=== PATIENT | male | born 1965 | race Caucasian/White ===

== ENCOUNTER → 2019-08-21 08:23 | Outpatient (BNVA) | payer MEDICAID, SELFPAY | PROVIDERS: Family Provider Nurse Practitioner Family; PCP Nurse Practitioner Family; Visit Provider Specialist | DX: G35 Multiple sclerosis (principal) | CPT/HCPCS: 36415; 96374; 96375; 96413; 96415; J1200; J2350; J2930; J7050 ==

== ENCOUNTER 2019-09-03 08:16 | Outpatient (CLI) | payer MEDICAID, SELFPAY ==
[2019-09-03] MEDS: acetaminophen 500 mg Tablet 1000 MG PO (09:48)
[2019-09-03] MEDS: diphenhydrAMINE 50 mg/mL SDV 1mL 25 MG IVP (14:51)
== END 2019-09-03 08:17 | disposition home or self-care (01) ==
LOC: NSACUTE 08:17
PROVIDERS: Family Provider Nurse Practitioner Family; PCP Nurse Practitioner Family; Visit Provider Specialist
DX: G35 Multiple sclerosis (principal)
CPT/HCPCS: 96365; 96366; 96374; 96375; J1200; J2350; J2930; J7050

== ENCOUNTER 2020-02-19 08:00 | Outpatient (CLI) | payer MEDICAID, SELFPAY ==
[2020-02-19] MEDS: acetaminophen 500 mg Tablet 1000 MG PO (09:15)
[2020-02-19] MEDS: diphenhydrAMINE 50 mg/mL SDV 1mL 25 MG IVP (09:20)
--- NOTE | 2020-02-19 15:02 | PC.NURSE ---
0930 Ocrevus initiated at 40 ml/hr. 1000 Titrated to 80 ml/hr. 1030 Titrated to 120 mls/hr. 1100 Titrated to 140 mls/hr. 1130 Titrate to 180 mls/hr. 1200 Titrated to 200 mls/hr Max rate. 1245. IV completed. Catheter end intact visually, cobban dressing applied.
== END 2020-02-19 08:01 | disposition home or self-care (01) ==
LOC: NSACUTE 08:01
PROVIDERS: Family Provider Nurse Practitioner Family; PCP Nurse Practitioner Family; Visit Provider Specialist
DX: G35 Multiple sclerosis (principal); M17.0 Bilateral primary osteoarthritis of knee; G81.11 Spastic hemiplegia affecting right dominant side; Z87.891 Personal history of nicotine dependence
CPT/HCPCS: 96365; 96366; 96375; 99214

== ENCOUNTER 2020-08-10 10:37 | Outpatient (CLI) | payer MEDICAID, SELFPAY ==
--- NOTE | 2020-08-10 11:00 | MR_ITS ---
WS: [id number] MRI HEAD WITH CONTRAST TECHNIQUE: Sagittal T1, T2 axial, T2 axial FLAIR, axial susceptibility weighted imaging, axial diffus ion weighted images, and coronal T2 images were obtained. Pre and post-T1 axial and post T1 coronal i mages. ADC and FSPGR images. CLINICAL INFORMATION: see dx COMPARISON: MRI FINDINGS: Prior postoperative changes left parietal craniotomy with left parietal resection cavity. Associated encephalomalacia and gliosis. Moderate chronic supratentorial white matter changes compatible with hi story of demyelinating disease. No enhancing lesions to indicate active disease. The number and distr ibution of lesions is not significantly changed since 2019. Mild T1 hypointense lesion load. Moderate parenchymal volume loss. Mild diffuse thinning of the corpus callosum. Chronic appearing lacunar inf arcts in the celestino and right cerebellum. No evidence of restricted diffusion to suggest acute ischemia. No hemosiderin on susceptibly weighted images. Normal optic chiasm and pituitary infundibulum. Normal cavernous sinuses and Meckel's cave. Normal dural venous sinuses. MR/MR head wo/w con [id number] IMPRESSION: 1. Stable chronic demyelinating plaques with no significant progression since 2019. 2. No enhancing lesions to indicate active disease. 3. Mild T1 hypointense lesion load with mild diffuse thinning of the corpus ca llosum. 4. Moderate parenchymal volume loss. 5. Left parietal craniotomy with resection cavity in the left parietal lobe. S urrounding encephalomalacia and gliosis. 6. Tiny chronic appearing lacunar infarcts in the celestino and right cerebellum.
== END 2020-08-10 10:38 | disposition home or self-care (01) ==
LOC: RADSHAW 10:38
PROVIDERS: PCP Nurse Practitioner Family; Visit Provider Specialist
DX: G35 Multiple sclerosis (principal)
CPT/HCPCS: 70553; A9577

== ENCOUNTER 2020-08-11 08:35 | Outpatient (CLI) | payer MEDICAID, SELFPAY ==
[2020-08-11] MEDS: acetaminophen 500 mg Tablet 1000 MG PO (09:12)
[2020-08-11] MEDS: diphenhydrAMINE 50 mg/mL SDV 1mL 12.5 MG IVP (09:25)
--- NOTE | 2020-08-11 10:00 | PC.NURSE ---
Ocrecus Lot [id number] 03/03/21 Solu Medrol Lot [id number] 04/02/22 Benadryl Lot [id number] 10/01/21
== END 2020-08-11 08:36 | disposition home or self-care (01) ==
LOC: NSACUTE 08:36
PROVIDERS: PCP Nurse Practitioner Family; Visit Provider Specialist
DX: G35 Multiple sclerosis (principal); Z87.891 Personal history of nicotine dependence
CPT/HCPCS: 96365; 96366; 96375; 99214; J1200; J2350; J2930; J7040

== ENCOUNTER → 2020-08-25 10:42 | Outpatient (BNVA) | payer MEDICAID, SELFPAY | PROVIDERS: PCP Nurse Practitioner Family; Visit Provider Nurse Practitioner Family | DX: I10 Essential (primary) hypertension (principal); G35 Multiple sclerosis | CPT/HCPCS: 80053; 80061; 84443; 85025 ==

== ENCOUNTER → 2021-02-03 08:59 | Outpatient (BNVA) | payer MEDICAID, SELFPAY ==
[2021-02-03] MEDS: acetaminophen 500 mg Tablet 1000 MG PO (09:45)
[2021-02-03] MEDS: diphenhydrAMINE 50 mg/mL SDV 1mL 25 MG IVP (10:15)
== END ==
PROVIDERS: PCP Nurse Practitioner Family; Visit Provider Specialist
DX: G35 Multiple sclerosis (principal)
CPT/HCPCS: 96365; 96366; 96375; J1200; J2350; J2930; J7040

== ENCOUNTER 2021-02-03 09:12 | Outpatient (CLI) | payer MEDICAID, SELFPAY | END 2021-02-03 09:13 | disposition home or self-care (01) | LOC: NSACUTE 09:15 | PROVIDERS: PCP Nurse Practitioner Family; Visit Provider Specialist | DX: G35 Multiple sclerosis (principal); Z71.89 Other specified counseling | CPT/HCPCS: 99214 ==

== ENCOUNTER → 2021-05-18 15:25 | Outpatient (BNVA) | payer MEDICAID, SELFPAY | PROVIDERS: PCP Nurse Practitioner Family; Visit Provider Nurse Practitioner Family | DX: I10 Essential (primary) hypertension (principal) | CPT/HCPCS: 80053; 80061; 84443; 85025 ==

== ENCOUNTER 2021-07-27 09:36 | Outpatient (CLI) | payer MEDICAID, SELFPAY ==
[2021-07-27 09:45] VITALS: BP 152/106; PULSE 98; RESP 18; TEMP 36.9; O2SAT 97
[2021-07-27] MEDS: acetaminophen 500 mg Tablet 1000 MG PO (10:14)
[2021-07-27] MEDS: sodium chloride 0.9% 250 ML 75 ML IV (10:16)
[2021-07-27] MEDS: diphenhydrAMINE 50 mg/mL SDV 1mL 25 MG IV (10:17)
[2021-07-27 10:35] VITALS: BP 155/113
[2021-07-27] MEDS: cloNIDine 0.1 mg Tablet 0.3 MG PO (10:35)
[2021-07-27 11:02] VITALS: BP 137/99; PULSE 85; RESP 18; TEMP 37; O2SAT 97
[2021-07-27 11:45] VITALS: BP 106/70; PULSE 76; RESP 18; TEMP 36.3; O2SAT 92
[2021-07-27 13:24] VITALS: BP 116/81; PULSE 79; RESP 18; TEMP 36.3; O2SAT 95
--- NOTE | 2021-07-27 15:43 | PC.NURSE ---
0935 - Patient to infusion suite for Ocrevus infusion. Initial blood pressure readings were elevated at 177/115 in the Left arm at 0950. At 0954 his reading in the Right arm was 155/113. A call was placed to Dr. Wood's office with these readings. I spoke with Fatmata, and she relayed these findings to Dr. Wood. The order for Clonidine, 0.3mg from Dr. Wood was given. I relayed the recommendation from Dr. Wood to the patient, and then administered the Clonidine. dh
== END 2021-07-27 09:37 | disposition home or self-care (01) ==
PROVIDERS: PCP Nurse Practitioner Family; Referring Provider Specialist; Visit Provider Specialist
DX: G35 Multiple sclerosis (principal); Z87.891 Personal history of nicotine dependence
CPT/HCPCS: 96365; 96366; 96375; 99214; J1200; J2350; J2930; J7040; J7050

== ENCOUNTER 2022-01-25 09:52 | Outpatient (CLI) | payer MEDICAID, SELFPAY ==
[2022-01-25 10:14] VITALS: BP 103/71; PULSE 90; RESP 18; TEMP 36.2; O2SAT 93
[2022-01-25] MEDS: sodium chloride 0.9% 250 ML 50 ML IV (10:29)
[2022-01-25] MEDS: acetaminophen 500 mg Tablet 1000 MG PO (10:31)
[2022-01-25] MEDS: diphenhydrAMINE 50 mg/mL SDV 1mL 25 MG IVP (10:32)
[2022-01-25 11:11] VITALS: BP 108/78; PULSE 89; RESP 18; TEMP 36.6; O2SAT 93
[2022-01-25 11:38] VITALS: BP 99/79; PULSE 79; RESP 18; TEMP 36.6; O2SAT 94
[2022-01-25 13:03] VITALS: BP 111/69; PULSE 82; RESP 18; TEMP 36.5; O2SAT 97
== END 2022-01-25 09:53 | disposition home or self-care (01) ==
PROVIDERS: PCP Nurse Practitioner Family; Referring Provider Specialist; Visit Provider Specialist
DX: G43.711 Chronic migraine without aura, intractable, with status migrainosus (principal); I10 Essential (primary) hypertension; G35 Multiple sclerosis
CPT/HCPCS: 96365; 96366; 96375; 99213; 99214; J1200; J2350; J2930; J7040; J7050

== ENCOUNTER 2022-04-01 10:52 | Outpatient (CLI) | payer MEDICAID, SELFPAY ==
--- NOTE | 2022-04-01 11:00 | MR_ITS ---
WS: [id number] MRI BRAIN WITH AND WITHOUT CONTRAST HISTORY: G35 - Multiple sclerosis COMPARISON: 08/10/2020 and 04/15/2019 TECHNIQUE: Multiplanar imaging performed through the brain with MultiHance 19 ml's IV. Diffusion-weighted imaging is normal. Postoperative resection LEFT parietal lobe with adjacent cranio shaq. There is evidence for encephalomalacia and gliosis at the LEFT parietal resection cavity. Chronic supratentorial white matter changes abutting the corpus callosum are reidentified. No obvious progression of disease. Most significant T2 signal abnormality surrounds the occipital horns in the subcortical white matter. Medial LEFT temporal lobe demyelinating lesion reidentified also. None of t hese lesions enhance. Ventricles and extra-axial spaces are normal. Clivus and pituitary gland are normal. Visualized posterior fossa and brainstem are also normal. Postcontrast images are negative for masses or vascular malformations. None of these signal abnormali ties related to demyelination are enhancing. Dural venous sinuses are normal. Paranasal sinuses: Very slight mucoperiosteal thickening LEFT maxillary sinus. Mastoid air cells: Normal. Calvarium and scalp: Normal. MR/MR head wo/w con [id number] IMPRESSION: 1. Stable chronic demyelinating plaques with no progression since 2019. 2. No active demyelination. 3. Mild atrophy and volume loss. 4. Stable LEFT parietal resection site and craniotomy.
--- NOTE | 2022-04-01 11:45 | MR_ITS ---
WS: [id number] MRI CERVICAL SPINE with and without contrast. HISTORY: G35 - Multiple sclerosis COMPARISON: 04/15/2019 Technique: Multiplanar, multisequence pre and postcontrast imaging of the cervical spine. MultiHance 19 mL IV. Straightening of the normal cervical lordosis with slight reversal centered at C4. Disc spaces are na rrowed. Hypertrophic osteophytes throughout the cervical spine with encroachment upon the ventral the venancio sac. No signal abnormality within the cord. There is no edema identified. Postcontrast images are negative for demyelinating lesions within the cervical cord. Craniocervical junction, C1 and C2 relationship, odontoid process and soft tissues are normal. C2-C3: Small hypertrophic osteophytes. No stenosis. C3-C4: Diffuse osteophytic ridging with a LEFT paracentral disc osteophyte complex contacting but not displacing the cervical cord. Very mild central and LEFT foraminal stenosis. No change since the max or study. C4-C5: Diffuse osteophytic ridging and mild facet arthritis. Very mild encroachment upon the ventral thecal sac with mild central and bilateral foraminal narrowing. C5-C6: Diffuse osteophytic ridging with a LEFT paracentral disc osteophyte complex causing mild encro achment on the LEFT lateral thecal sac and LEFT foramen. Mild central and LEFT foraminal stenosis. Mi ld progression of stenosis since the prior study. C6-C7: Mild asymmetric disc bulging and vertebral body osteophytosis. Slightly greater disc osteophyt e proximal LEFT foramen. Mild central and RIGHT foraminal stenosis with moderate LEFT foraminal steno sis. Similar to the prior study. C7-T1: No significant stenosis. Paraspinal soft tissue are normal. MR/MR cervical spine wo/w [id number] IMPRESSION: 1. No demyelinating lesions or enhancement within the cervical cord. No cord a trophy. 2. Multilevel moderate spondylitic changes in the cervical spine. Only minimal progression since 04/15/2019. 3. Mild central and bilateral foraminal stenosis at C4-5. 4. LEFT paracentral disc osteophyte complex at C5-6. Causing mild encroachment upon the LEFT lateral thecal sac and foraminal narrowing. 5. Moderate LEFT foraminal stenosis at C6-7 due to disc and osteophyte disease . Mild central and RIGHT foraminal stenosis at C6-7.
--- NOTE | 2022-04-01 13:00 | MR_ITS ---
WS: [id number] MRI THORACIC SPINE with and without contrast. HISTORY: G35 - Multiple sclerosis COMPARISON: 04/12/2019 TECHNIQUE: Multiplanar sequences are performed in sagittal and axial planes. Post contrast imaging, M ultiHance 19 mL IV. Normal posterior thoracic alignment. No marrow edema in the thoracic spine. Marrow edema noted along the inferior endplate of L1. No areas of abnormal enhancement. No signal abnormality within the cord to suggest demyelination. No active demyelinating lesions or enhancement. Very slight anterior wedgin g of T6 is similar to the prior examination. Central stenosis or cord compression. There is a very small central disc protrusion at T10-11. Otherw ise mild facet joint arthritis. Paraspinal soft tissues are negative. MR/MR thoracic spine wo/w [id number] IMPRESSION: 1. No demyelinating lesions or enhancement within the thoracic cord. No cord a trophy. 2. No significant central or foraminal stenosis.
[2022-04-01] MEDS: gadobenate dimeglumine 20 mL vial IV (14:48)
== END 2022-04-01 10:53 | disposition home or self-care (01) ==
LOC: RAD 10:54
PROVIDERS: PCP Nurse Practitioner Family; Visit Provider Specialist
DX: G35 Multiple sclerosis (principal); M47.892 Other spondylosis, cervical region; M48.02 Spinal stenosis, cervical region; M25.78 Osteophyte, vertebrae
CPT/HCPCS: 70553; 72156; 72157

== ENCOUNTER 2022-07-28 09:06 | Outpatient (CLI) | payer MEDICAID, SELFPAY ==
[2022-07-28 09:22] VITALS: BP 168/98; PULSE 83; RESP 18; TEMP 36.8; O2SAT 97
[2022-07-28] MEDS: sodium chloride 0.9% 250 ML 50 ML IV (09:46)
[2022-07-28] MEDS: acetaminophen 500 mg Tablet 1000 MG PO (09:48)
[2022-07-28] MEDS: diphenhydrAMINE 50 mg/mL SDV 1mL 25 MG IVP (09:49)
[2022-07-28 10:13] VITALS: BP 162/96; PULSE 78; RESP 18; TEMP 36.7; O2SAT 96
[2022-07-28 10:59] VITALS: BP 158/98; PULSE 80; RESP 18; TEMP 36.8; O2SAT 98
[2022-07-28 12:12] VITALS: BP 159/106; PULSE 76; RESP 18; TEMP 36.3; O2SAT 97
[2022-07-28 12:36] VITALS: BP 181/101; PULSE 75; RESP 18; TEMP 36.6; O2SAT 97
--- NOTE | 2022-07-28 12:58 | PC.NURSE ---
Pt's BP readings were elevated today at his visit to the infusion suite. He states that he was elevated at his visit with Dr. Wood this morning. Pt states that he is seeing his PCP tomorrow, and they will address it. dh
== END 2022-07-28 09:07 | disposition home or self-care (01) ==
PROVIDERS: PCP Nurse Practitioner Family; Visit Provider Specialist
DX: G35 Multiple sclerosis (principal); I10 Essential (primary) hypertension; G47.00 Insomnia, unspecified
CPT/HCPCS: 96365; 96366; 96375; 99213; A4222; J1200; J2350; J2930; J7040; J7050

== ENCOUNTER → 2022-07-29 09:45 | Outpatient (BNVA) | payer MEDICAID, SELFPAY | PROVIDERS: PCP Nurse Practitioner Family; Visit Provider Nurse Practitioner Family | DX: I10 Essential (primary) hypertension (principal); G35 Multiple sclerosis; G43.711 Chronic migraine without aura, intractable, with status migrainosus; Z12.11 Encounter for screening for malignant neoplasm of colon; Z12.5 Encounter for screening for malignant neoplasm of prostate | CPT/HCPCS: 80053; 80061; 84443; 85025; G0103 ==

== ENCOUNTER → 2022-09-01 10:14 | Outpatient (BNVA) | payer MEDICAID, SELFPAY | PROVIDERS: PCP Nurse Practitioner Family; Visit Provider Nurse Practitioner Family | DX: D72.829 Elevated white blood cell count, unspecified (principal); E78.5 Hyperlipidemia, unspecified | CPT/HCPCS: 85025 ==

== ENCOUNTER 2023-01-26 09:06 | Oncology outpatient (recurring) (ONCR) | payer MEDICAID, SELFPAY ==
[2023-01-26 09:27] VITALS: BP 135/95; PULSE 74; RESP 18; TEMP 36.6; O2SAT 97
[2023-01-26] MEDS: sodium chloride 0.9% 250 ML 100 ML IV (09:38)
[2023-01-26] MEDS: acetaminophen 500 mg Tablet 1000 MG PO (09:39)
[2023-01-26] MEDS: diphenhydrAMINE 50 mg/mL SDV 1mL 25 MG IVP (09:39)
[2023-01-26] MEDS: methylPREDNISolone sod succ 125 mg SDV IVP (09:43)
[2023-01-26 09:59] VITALS: BP 136/99; PULSE 72; RESP 16; TEMP 37.2; O2SAT 95
[2023-01-26] MEDS: ocrelizumab 600 MG in sodium chloride 0.9% 500 ML 100 MG IV (09:59)
[2023-01-26 10:15] VITALS: BP 126/93; PULSE 76; RESP 16; TEMP 37.2; O2SAT 95
[2023-01-26 10:30] VITALS: BP 130/90; PULSE 72; RESP 16; TEMP 37.2; O2SAT 96
[2023-01-26 11:00] VITALS: BP 131/91; PULSE 69; RESP 16; TEMP 37.2; O2SAT 95
[2023-01-26 12:15] VITALS: BP 140/97; PULSE 73; TEMP 36.2
== END 2023-01-30 23:59 | disposition home or self-care (01) ==
LOC: ONCMED 09:07
PROVIDERS: PCP Nurse Practitioner Family; Visit Provider Specialist
DX: G35 Multiple sclerosis (principal)
CPT/HCPCS: 96375; 96413; 96415; 99213; J1200; J2350; J2930; J7040; J7050

== ENCOUNTER → 2023-03-21 14:52 | Outpatient (BNVA) | payer MEDICAID, SELFPAY | PROVIDERS: PCP Nurse Practitioner Family; Visit Provider Nurse Practitioner Family | DX: I10 Essential (primary) hypertension (principal) | CPT/HCPCS: 80053; 80061; 84443; 85025 ==

== ENCOUNTER 2023-08-07 09:00 | Oncology outpatient (recurring) (ONCR) | payer MEDICAID, SELFPAY ==
[2023-08-07 10:06] VITALS: BP 151/97; PULSE 85; RESP 16; TEMP 36.9; O2SAT 96
[2023-08-07] MEDS: sodium chloride 0.9% 250 ML 75 ML IV (10:15)
[2023-08-07] MEDS: methylPREDNISolone sod succ 125 mg SDV IVP (10:15)
[2023-08-07] MEDS: acetaminophen 500 mg Tablet 1000 MG PO (10:19)
[2023-08-07] MEDS: diphenhydrAMINE 50 mg/mL SDV 1mL 25 MG IVP (10:19)
[2023-08-07 10:45] VITALS: BP 151/97; PULSE 85; RESP 16; TEMP 36.9; O2SAT 96
[2023-08-07] MEDS: ocrelizumab 600 MG in sodium chloride 0.9% 500 ML 100 MG IV (10:45)
[2023-08-07 11:00] VITALS: BP 130/88; PULSE 69; RESP 16; TEMP 36.8; O2SAT 96
[2023-08-07 11:15] VITALS: BP 135/81; PULSE 99; RESP 16; TEMP 36.5; O2SAT 96
[2023-08-07 11:45] VITALS: BP 123/78; PULSE 63; RESP 16; TEMP 36.5; O2SAT 96
== END 2023-08-07 23:59 | disposition home or self-care (01) ==
PROVIDERS: PCP Nurse Practitioner Family; Visit Provider Specialist
DX: G35 Multiple sclerosis (principal)
CPT/HCPCS: 96375; 96413; 96415; 99213; A4222; J1200; J2350; J2930; J7040; J7050

== ENCOUNTER → 2023-08-08 09:02 | Outpatient (BNVA) | payer MEDICAID, SELFPAY | PROVIDERS: PCP Nurse Practitioner Family; Visit Provider Nurse Practitioner Family | DX: I10 Essential (primary) hypertension (principal); E78.5 Hyperlipidemia, unspecified; E78.2 Mixed hyperlipidemia; G35 Multiple sclerosis; G43.711 Chronic migraine without aura, intractable, with status migrainosus | CPT/HCPCS: 80053; 80061; 84443; 85025 ==

== ENCOUNTER 2024-02-08 09:23 | Oncology outpatient (recurring) (ONCR) | payer MEDICAID, SELFPAY ==
[2024-02-08 09:33] VITALS: BP 126/85; PULSE 89; RESP 16; TEMP 36.9; O2SAT 95
[2024-02-08] MEDS: acetaminophen 500 mg Tablet 1000 MG PO (09:55)
[2024-02-08] MEDS: methylPREDNISolone sod succ 125 mg/2 mL INJ IVP (09:56)
[2024-02-08] MEDS: diphenhydrAMINE 50 mg/mL SDV 1mL 25 MG IVP (09:56)
[2024-02-08 10:15] VITALS: BP 113/75; PULSE 81; RESP 16; TEMP 36.6; O2SAT 93
[2024-02-08] MEDS: ocrelizumab 600 MG in sodium chloride 0.9% 500 ML 100 MG IV (10:28)
[2024-02-08 10:30] VITALS: BP 112/74; PULSE 70; RESP 16; TEMP 36.2; O2SAT 93
[2024-02-08 10:45] VITALS: BP 116/74; PULSE 75; RESP 16; TEMP 36.3; O2SAT 92
[2024-02-08 11:35] VITALS: BP 114/75; PULSE 69; RESP 16; TEMP 36.3; O2SAT 94
[2024-02-08 13:00] VITALS: BP 145/78; PULSE 78; RESP 18; TEMP 36.1; O2SAT 98
== END 2024-02-08 23:59 | disposition home or self-care (01) ==
PROVIDERS: PCP Nurse Practitioner Family; Visit Provider Specialist
DX: G35 Multiple sclerosis (principal); Z79.899 Other long term (current) drug therapy; Z79.620 Long term (current) use of immunosuppressive biologic
CPT/HCPCS: 96365; 96366; 96375; A4222; J1200; J2350; J2919; J7040

== ENCOUNTER → 2024-02-13 08:40 | Outpatient (BNVA) | payer MEDICAID, SELFPAY | PROVIDERS: PCP Nurse Practitioner Family; Visit Provider Nurse Practitioner Family | DX: I10 Essential (primary) hypertension (principal); E78.5 Hyperlipidemia, unspecified; Z12.5 Encounter for screening for malignant neoplasm of prostate | CPT/HCPCS: 80053; 80061; 84443; 85025; G0103 ==

== ENCOUNTER → 2024-05-07 07:48 | Outpatient (BNVA) | payer MEDICAID, SELFPAY | PROVIDERS: PCP Nurse Practitioner Family; Visit Provider Surgery | DX: Z12.11 Encounter for screening for malignant neoplasm of colon (principal); R03.0 Elevated blood-pressure reading, without diagnosis of hypertension; G35 Multiple sclerosis; K21.00 Gastro-esophageal reflux disease with esophagitis, without bleeding; I10 Essential (primary) hypertension; Z71.9 Counseling, unspecified | CPT/HCPCS: 99203; 99214 ==

== ENCOUNTER → 2024-08-09 14:57 | Outpatient (BNVA) | payer MEDICAID, SELFPAY | PROVIDERS: PCP Nurse Practitioner Family; Visit Provider Specialist | DX: G35 Multiple sclerosis (principal); Z71.9 Counseling, unspecified; K21.00 Gastro-esophageal reflux disease with esophagitis, without bleeding; I10 Essential (primary) hypertension | CPT/HCPCS: 99213 ==

== ENCOUNTER 2024-08-12 07:55 | Oncology outpatient (recurring) (ONCR) | payer MEDICAID, SELFPAY ==
[2024-08-12] MEDS: sodium chloride 0.9% 250 ML 75 ML IV (08:39)
[2024-08-12] MEDS: acetaminophen 500 mg Tablet 1000 MG PO (08:41)
[2024-08-12] MEDS: methylPREDNISolone sod succ 125 mg/2 mL INJ IVP (08:42)
[2024-08-12] MEDS: diphenhydrAMINE 50 mg/mL SDV 1mL 25 MG IVP (08:48)
[2024-08-12 09:25] VITALS: BP 132/86; PULSE 70; RESP 16; TEMP 37.6; O2SAT 96
[2024-08-12] MEDS: ocrelizumab 600 MG in sodium chloride 0.9% 500 ML 100 MG IV (09:25)
[2024-08-12 09:40] VITALS: BP 125/82; PULSE 71; RESP 16; TEMP 37.1; O2SAT 95
[2024-08-12 09:55] VITALS: BP 117/76; PULSE 67; RESP 16; TEMP 36.7; O2SAT 94
[2024-08-12 10:25] VITALS: BP 142/88; PULSE 70; TEMP 36.7; O2SAT 95
[2024-08-12 12:19] VITALS: BP 142/88; PULSE 70; TEMP 36.7; O2SAT 95
== END 2024-08-12 23:59 | disposition home or self-care (01) ==
LOC: ONCMED 07:57
PROVIDERS: PCP Nurse Practitioner Family; Visit Provider Specialist
DX: G35 Multiple sclerosis (principal); Z79.899 Other long term (current) drug therapy
CPT/HCPCS: 80053; 80061; 84443; 85025; 96375; 96413; 96415; A4222; J1200; J2350; J2919; J7040; J7050

== ENCOUNTER 2024-08-15 06:35 | Day surgery (SDC) | payer MEDICAID, SELFPAY ==
--- NOTE | 2024-08-15 06:47 | W.PM.OPSFHP ---
Same Day Surgery H&P Indication for Procedure/HPI DATE OF PROCEDURE: August 15, 2024 CHIEF COMPLAINT/INDICATIONFOR SURGICAL PROCEDURE: need for screening colonoscopy PREOP DIAGNOSIS: need for screening colonoscopy PLANNED PROCEDURE: Operation Date: 08/15/24 07:55 Proposed Procedures p Colonoscopy 98819, Z12.11(Not Applicable) - Damien Wang MD Medications/Allergies* Home Medications ?Medication ?Instructions ?Recorded ?Confirmed ?Type cholecalciferol (vitamin D3) 25 25 mcg PO DAILY 02/03/21 08/13/24 History mcg (1,000 unit) capsule turmeric 100 mg-zane 150 1 cap PO DAILY 05/18/21 08/13/24 History mg-olive 50 mg-oreg 150 mg-capryl capsule omega 3-wwi-ivz-fish oil 1,000 mg 1 cap PO DAILY 05/07/24 08/13/24 History (120 mg-180 mg) capsule (Fish Oil) ocrelizumab 30 mg/mL intravenous 600 mg IV .[id number] 08/13/24 08/13/24 History solution (Ocrevus) trazodone 100 mg tablet 100 mg PO DAILY PRN Insomnia 08/13/24 08/13/24 History zolpidem 10 mg tablet (Ambien) 10 mg PO DAILY 08/13/24 08/13/24 History Allergies/Adverse Reactions Allergy/AdvReac Type Severity Reaction Status Date / Time No Known Allergies Allergy Verified 08/13/24 09:42 Pertinent History/Comorbid Conditions* Medical History (Updated 08/03/23 @ 10:17 by Molly Wood MD) Multiple sclerosis GERD with esophagitis Accelerated essential hypertension Surgical History (Updated 01/06/20 @ 16:28 by DERRICK Salas) Hx of appendectomy Hx of arthroscopy of knee Family History (Updated 02/14/24 @ 10:54 by RANDY Hubbard) Sarcoma Father Social History Smoking and tobacco/nicotine status: former use of tobacco/nicotine (quit 12+ years ago) Alcohol intake: former Substance/Drug Use: never Lives independently: Yes Housing: House Marital status: Single Pertinent Exam Findings alert, oriented x 3, clear to auscultation bilaterally, regular rate & rhythm and procedure specific exam findings Recommendations Surgery/Procedure today Coding Level of Care Code Acute Code for Chg Fwd
[2024-08-15 06:53] VITALS: BP 157/101; PULSE 103; RESP 18; TEMP 36.2; O2SAT 96; BMI 35.4
[2024-08-15] MEDS: sodium chloride 0.9% 1,000 ML 30 ML IV (07:03)
--- NOTE | 2024-08-15 07:52 | ANES.PREANE2 ---
Pre-Anesthetic Assessment Height/Weight: Height 1.7 m Weight 102.512 kg Temp Pulse Resp BP Pulse Ox O2 Del Method 97.2 F L 103 H 18 157/101 96 Room Air 08/15/24 06:53 08/15/24 06:53 08/15/24 06:53 08/15/24 06:53 08/15/24 06:53 08/15/24 06:53 Preop Diagnosis: need for screening colonoscopy Operation Date: 08/15/24 07:55 Proposed Procedures p Colonoscopy [id number], Z12.11(Not Applicable) - Damien Wang MD Was Beta Ninfa taken within 24 hours: Yes Was Clonidine taken within 24 hours: N/A Last intake: Intake Last Liquid Date 08/14/24 Last Liquid Time 22:00 Last Solid Date 08/13/24 Last Solid Time 22:30 Social Alcohol and No tobacco Exam alert, oriented x 3, clear to auscultation bilaterally and regular rate & rhythm Airway Submandibular: within normal limits Cervical ROM: within normal limits Mallampati: Class II Comments: Comments: Missing and chipped teeth History/ROS No significant history except as noted and No significant complaints Pulmonary None reported CV/HEM Hypertension None reported Hepatic None reported GI None reported Metabolic None reported Musc/skel Lower Back Pain Neuropsych MS Anesthetic Plan ASA status: 3 Anesthesia: Anesthesia Evaluation and MAC Risk of > 500 ml blood loss (7ml/kg in children): No Medications/Allergies Home Medications ?Medication ?Instructions ?Recorded ?Confirmed ?Last Taken ?Type cholecalciferol (vitamin D3) 25 25 mcg PO DAILY 02/03/21 08/15/24 08/14/24 History mcg (1,000 unit) capsule turmeric 100 mg-zane 150 1 cap PO DAILY 05/18/21 08/15/24 08/14/24 History mg-olive 50 mg-oreg 150 mg-capryl capsule omega 6-pyd-vpd-fish oil 1,000 mg 1 cap PO DAILY 05/07/24 08/15/24 08/14/24 History (120 mg-180 mg) capsule (Fish Oil) atorvastatin 20 mg tablet 20 mg PO DAILY #90 tabs 08/12/24 08/15/24 08/14/24 Rx hydrochlorothiazide 25 mg tablet 25 mg PO QAM #90 tabs 08/12/24 08/15/24 08/14/24 Rx lisinopril 30 mg tablet 30 mg PO DAILY #90 tabs 08/12/24 08/15/24 08/14/24 Rx metoprolol succinate 100 mg 100 mg PO DAILY 90 days #90 tabs 08/12/24 08/15/24 08/15/24 05:00 Rx tablet,extended release 24 hr ocrelizumab 30 mg/mL intravenous 600 mg IV .[id number] 08/13/24 08/15/24 08/12/24 History solution (Ocrevus) trazodone 100 mg tablet 100 mg PO DAILY PRN Insomnia 08/13/24 08/15/24 08/13/24 History zolpidem 10 mg tablet (Ambien) 10 mg PO DAILY 08/13/24 08/15/24 Unknown History Allergies Allergy/AdvReac Type Severity Reaction Status Date / Time No Known Allergies Allergy Verified 08/13/24 09:42 Current Medications Generic Name Dose Route Start Last Admin Trade Name Freq PRN Reason Stop Dose Admin Sodium Chloride 1,000 mls @ 30 mls/hr 08/15/24 06:45 08/15/24 07:03 Sodium Chloride 0.9% IV 30 mls/hr .Q24H EZRA Administration PFSH Anesthesia Medical History Multiple sclerosis GERD with esophagitis Accelerated essential hypertension Surgical History Hx of appendectomy Hx of arthroscopy of knee Family History Father Sarcoma Social History Smoking and tobacco/nicotine status: former use of tobacco/nicotine (quit 12+ years ago) Alcohol intake: former Substance/Drug Use: never Lives independently: Yes Housing: House Marital status: Single Data Anesthesia Cardiac Studies: No Data to Display
[2024-08-15 08:41] VITALS: BP 103/69; PULSE 71; RESP 18; TEMP 36.3; O2SAT 92
[2024-08-15 08:52] VITALS: BP 102/78; PULSE 80; RESP 18; TEMP 36.2; O2SAT 95
--- NOTE | 2024-08-15 09:23 | ANE.PACU2 ---
Inpatient post-anesthesia follow up: Airway intact: Yes Vital signs: Temperature 97.1 F Pulse Rate 80 Respiratory Rate 18 Blood Pressure 102/78 Pulse Oximetry 95 Oxygen Delivery Me thod Room Air Oxygen Flow Rate Fraction of Inspir ed Oxygen Hydration adequate: Yes Nausea and vomiting: No Pain level: 1 Mental status: Baseline
== END 2024-08-15 09:23 | disposition home or self-care (01) ==
PROVIDERS: PCP Nurse Practitioner Family; Visit Provider Surgery
PROC: 0DJD8ZZ Inspection of Lower Intestinal Tract, Via Natural or Artificial Opening Endoscopic (ICD-10-PCS; CPT 45378; principal; 2024-08-15 07:55)
DX: Z12.11 Encounter for screening for malignant neoplasm of colon (principal); D12.2 Benign neoplasm of ascending colon; D12.4 Benign neoplasm of descending colon; D12.3 Benign neoplasm of transverse colon; K62.1 Rectal polyp; K64.4 Residual hemorrhoidal skin tags; K57.30 Diverticulosis of large intestine without perforation or abscess without bleeding; I10 Essential (primary) hypertension; G35 Multiple sclerosis; Z79.899 Other long term (current) drug therapy; Z87.891 Personal history of nicotine dependence
CPT/HCPCS: 45380; 45385; 88305; J2704; J7030

== ENCOUNTER → 2024-08-27 14:26 | Outpatient (BNVA) | payer MEDICAID, SELFPAY | PROVIDERS: PCP Nurse Practitioner Family; Visit Provider Surgery | DX: Z12.11 Encounter for screening for malignant neoplasm of colon (principal) | CPT/HCPCS: 99024; 99213 ==

== ENCOUNTER 2025-05-08 08:00 | Oncology outpatient (recurring) (ONCR) | payer SELFPAY ==
[2025-05-08 08:47] VITALS: BP 134/91; PULSE 76; RESP 16; TEMP 36.6; O2SAT 99
[2025-05-08] MEDS: diphenhydrAMINE 50 mg/mL SDV 1mL 25 MG IVP (09:11)
[2025-05-08] MEDS: methylPREDNISolone sod succ 125 mg/2 mL INJ IVP (09:14)
[2025-05-08 10:15] VITALS: BP 132/88; PULSE 81; RESP 16; TEMP 36.6; O2SAT 98
[2025-05-08 10:30] VITALS: BP 121/83; PULSE 66; RESP 16; TEMP 36.6; O2SAT 99
[2025-05-08 12:05] VITALS: BP 126/85; PULSE 67; RESP 16; TEMP 36.6; O2SAT 98
== END 2025-06-01 23:59 | disposition home or self-care (01) ==
PROVIDERS: PCP Nurse Practitioner Family; Visit Provider Specialist
DX: G35.D Multiple sclerosis, unspecified (principal); Z79.899 Other long term (current) drug therapy
CPT/HCPCS: 96375; 96413; 96415; A4222; J1200; J2350; J2919; J7040; J7050; J9999